=== PATIENT | female | born 1985 | race Caucasian/White ===

== ENCOUNTER 2020-08-04 14:05 | Emergency (ER) | payer MEDICAID ==
--- NOTE | 2020-08-04 15:13 | EDM.PDOCBH ---
ED HPI GENERAL MEDICAL PROBLEM - General Chief Complaint: Drug or Alcohol Abuse Stated Complaint: MEDICAL CLEARANCE FOR DETOX Time Seen by Provider: 08/04/20 14:50 Source of Information: Reports: Patient, Old Records History Limitations: Reports: No Limitations - History of Present Illness INITIAL COMMENTS - FREE TEXT/NARRATIVE: 34 yo female presents requesting medical clearance before admission to [facility]. Drinks a liter a day of hard liquor for a few mos. No hx of withdrawal or detox/rehab. Feels mildly shaky now. Lives in [place]. Stopped all her meds except for Flecainide. 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) - Related Data Allergies Allergy/AdvReac Type Severity Reaction Status Date / Time paroxetine [From Paxil] Allergy Nervousness Verified 08/04/20 14:53 trazodone Allergy Other Verified 08/04/20 14:53 Home Meds: Home Meds Flecainide [Tambocor] 100 mg PO Q12H 08/04/20 [History] Past Medical History Cardiovascular History: Reports: Other (See Below) Genitourinary History: Reports: None 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: Neurological History: Reports: Migraines Psychiatric History: Reports: Depression, PTSD Immunologic History: Reports: Other (See Below) Other Immunologic History: lymes - Infectious Disease History Infectious Disease History: Reports: Chicken Pox - Past Surgical History Head Surgeries/Procedures: Reports: None Cardiovascular Surgical History: Reports: Cardiac Ablation Female Surgical History: Reports: Section, Tubal Ligation Neurological Surgical History: Reports: None Dermatological Surgical History: Reports: None Social & Family History - Tobacco Use Tobacco Use Status *Q: Current Every Day Tobacco User Years of Tobacco use: 20 Packs/Tins Daily: 1 Used Tobacco, but Quit: No Second Hand Smoke Exposure: Yes - Caffeine Use Caffeine Use: Reports: Soda - Alcohol Use Days Per Week of Alcohol Use: 7 Number of Drinks Per Day: 1 Total Drinks Per Week: 7 - Recreational Drug Use Recreational Drug Use: No ED ROS GENERAL - Review of Systems Review Of Systems: See Below Constitutional: Reports: No Symptoms HEENT: Reports: No Symptoms Respiratory: Reports: No Symptoms Cardiovascular: Reports: No Symptoms Endocrine: Reports: No Symptoms GI/Abdominal: Reports: No Symptoms : Reports: No Symptoms Musculoskeletal: Reports: No Symptoms Skin: Reports: No Symptoms Neurological: Reports: Tremors ED EXAM, BEHAVIORAL HEALTH - Physical Exam Exam: See Below Exam Limited By: No Limitations General Appearance: Alert, WD/WN, No Apparent Distress Eye Exam: Bilateral Eye: Normal Inspection Ears: Normal External Exam, Normal Canal, Hearing Grossly Normal, Normal TMs Nose: Normal Inspection, No Blood Throat/Mouth: Normal Inspection, Normal Lips, Normal Oropharynx, Normal Voice, No Airway Compromise Head: Atraumatic, Normocephalic Neck: Normal Inspection Respiratory/Chest: No Respiratory Distress, Lungs Clear, Normal Breath Sounds, No Accessory Muscle Use Cardiovascular: Regular Rate, Rhythm, No Edema GI/Abdominal: Soft, Non-Tender, No Distention. No: Distended Back Exam: Normal Inspection. No: CVA Tenderness (R), CVA Tenderness (L) Extremities: Normal Inspection, Normal Range of Motion, Non-Tender, No Pedal Edema Neurological: Alert, Normal Mood/Affect, CN II-XII Intact, Normal Cognition, No Motor/Sensory Deficits, Oriented x 3 Psychiatric: Alert, Normal Affect, Normal Cognition, Normal Mood, Oriented Skin Exam: Warm, Dry, Intact, Normal color, No rash COURSE, BEHAVIORAL HEALTH COMP - Course Vital Signs: Last Vital Signs Temp 36.5 C 08/04/20 14:58 Pulse 67 08/04/20 14:58 Resp 17 08/04/20 14:58 BP 142/82 H 08/04/20 14:58 Pulse Ox 98 08/04/20 14:58 Orders, Labs, Meds: Active Orders 24 hr Category Date Time Status Potassium Chloride [Klor-Con M20] Med 08/04/20 15:32 Once 20 meq PO ONETIME ONE Laboratory Tests 08/04/20 08/04/20 08/04/20 Range/Units 14:49 14:49 14:49 WBC 9.0 (4.5-11.0) K/uL RBC 4.09 (3.30-5.50) M/uL Hgb 13.3 (12.0-15.0) g/dL Hct 40.6 (36.0-48.0) % MCV 99 H (80-98) fL MCH 33 H (27-31) pg MCHC 33 (32-36) % Plt Count 235 (150-400) K/uL Sodium 147 (140-148) mmol/L Potassium 3.4 L (3.6-5.2) mmol/L Chloride 106 (100-108) mmol/L Carbon Dioxide 25 (21-32) mmol/L Anion Gap 19.4 H (5.0-14.0) mmol/L BUN 13 (7-18) mg/dL Creatinine 0.8 (0.6-1.0) mg/dL Est Cr Clr Drug Dosing 85.69 mL/min Estimated GFR (MDRD) > 60 (>60) Glucose 89 (74-106) mg/dL Calcium 8.4 L (8.5-10.1) mg/dL Urine Color (YELLOW) Urine Appearance (CLEAR) Urine pH (5.0-8.0) Ur Specific [place] (1.008-1.030) Urine Protein (NEGATIVE) mg/dL Urine Glucose (UA) (NEGATIVE) mg/dL Urine Ketones (NEGATIVE) mg/dL Urine Occult Blood (NEGATIVE) Urine Nitrite (NEGATIVE) Urine Bilirubin (NEGATIVE) Urine Urobilinogen (0.2-1.0) EU/dL Ur Leukocyte Esterase (NEGATIVE) Urine RBC (0-5) Urine WBC (0-5) Ur Epithelial Cells Amorphous Sediment Urine Bacteria Urine Mucus Urine Opiates Screen (NEGATIVE) Ur Oxycodone Screen (NEGATIVE) Urine Methadone Screen (NEGATIVE) Ur Propoxyphene Screen (NEGATIVE) Ur Barbiturates Screen (NEGATIVE) Ur Tricyclics Screen (NEGATIVE) Ur Phencyclidine Scrn (NEGATIVE) Ur Amphetamine Screen (NEGATIVE) U Methamphetamines Scrn (NEGATIVE) Urine MDMA Screen (NEGATIVE) U Benzodiazepines Scrn (NEGATIVE) U Cocaine Metab Screen (NEGATIVE) U Marijuana (THC) Screen (NEGATIVE) Ethyl Alcohol 12 mg/dL SARS CoV-2 RNA Rapid UNIQUE 08/04/20 08/04/20 08/04/20 Range/Units 14:54 15:06 15:14 WBC (4.5-11.0) K/uL RBC (3.30-5.50) M/uL Hgb (12.0-15.0) g/dL Hct (36.0-48.0) % MCV (80-98) fL MCH (27-31) pg MCHC (32-36) % Plt Count (150-400) K/uL Sodium (140-148) mmol/L Potassium (3.6-5.2) mmol/L Chloride (100-108) mmol/L Carbon Dioxide (21-32) mmol/L Anion Gap (5.0-14.0) mmol/L BUN (7-18) mg/dL Creatinine (0.6-1.0) mg/dL Est Cr Clr Drug Dosing mL/min Estimated GFR (MDRD) (>60) Glucose (74-106) mg/dL Calcium (8.5-10.1) mg/dL Urine Color Yellow (YELLOW) Urine Appearance Slightly cloudy A (CLEAR) Urine pH 7.0 (5.0-8.0) Ur Specific [place] >= 1.030 (1.008-1.030) Urine Protein Negative (NEGATIVE) mg/dL Urine Glucose (UA) Negative (NEGATIVE) mg/dL Urine Ketones Negative (NEGATIVE) mg/dL Urine Occult Blood Negative (NEGATIVE) Urine Nitrite Negative (NEGATIVE) Urine Bilirubin Negative (NEGATIVE) Urine Urobilinogen 0.2 (0.2-1.0) EU/dL Ur Leukocyte Esterase Negative (NEGATIVE) Urine RBC 0-5 (0-5) Urine WBC 0-5 (0-5) Ur Epithelial Cells Moderate Amorphous Sediment Not seen Urine Bacteria Rare Urine Mucus Moderate Urine Opiates Screen Negative (NEGATIVE) Ur Oxycodone Screen Negative (NEGATIVE) Urine Methadone Screen Negative (NEGATIVE) Ur Propoxyphene Screen Negative (NEGATIVE) Ur Barbiturates Screen Negative (NEGATIVE) Ur Tricyclics Screen Negative (NEGATIVE) Ur Phencyclidine Scrn Negative (NEGATIVE) Ur Amphetamine Screen Negative (NEGATIVE) U Methamphetamines Scrn Negative (NEGATIVE) Urine MDMA Screen Negative (NEGATIVE) U Benzodiazepines Scrn Negative (NEGATIVE) U Cocaine Metab Screen Negative (NEGATIVE) U Marijuana (THC) Screen Negative (NEGATIVE) Ethyl Alcohol mg/dL SARS CoV-2 RNA Rapid UNIQUE Negative Medical Clearance: 08/04/20 15:32 Medically stable to discharge to [facility]. Departure - Departure Time of Disposition: 15:40 Disposition: DC/Tfer to Other Condition: Fair Clinical Impression: Alcohol abuse, Hypokalemia - Discharge Information *PRESCRIPTION DRUG MONITORING PROGRAM REVIEWED*: Not Applicable *COPY OF PRESCRIPTION DRUG MONITORING REPORT IN PATIENT ELIAS: Not Applicable Instructions: Alcohol Use Disorder Referrals: PCP,None [Primary Care Provider] - Forms: ED Department Discharge Sepsis Event Note (ED) - Evaluation Sepsis Screening Result: No Definite Risk - Focused Exam Vital Signs: Vital Signs Temp Pulse Resp BP Pulse Ox 08/04/20 14:58 36.5 C 67 17 142/82 H 98 08/04/20 14:39 36.5 C 67 17 142/82 H 98 - My Orders Last 24 Hours: My Active Orders 08/04/20 15:32 Potassium Chloride [Klor-Con M20] 20 meq PO ONETIME ONE - Assessment/Plan Last 24 Hours: My Active Orders 08/04/20 15:32 Potassium Chloride [Klor-Con M20] 20 meq PO ONETIME ONE
[2020-08-04] MEDS ORDERED: Potassium Chloride 20 MEQ Tab.ER PO ONE (15:32)
== END 2020-08-04 16:41 | disposition other institution (70) ==
LOC: JP.ED 14:05
DX: F10.10 Alcohol abuse, uncomplicated (principal); E87.6 Hypokalemia; Z88.8 Allergy status to other drugs, medicaments and biological substances; Z88.5 Allergy status to narcotic agent; Z72.0 Tobacco use; Z20.822 Contact with and (suspected) exposure to COVID-19
CPT/HCPCS: 36415; 80048; 80305; 80307; 81001; 85027; 87635; 99284; A9270; U0002

== ENCOUNTER 2020-10-04 23:19 | Emergency (ER) | payer MEDICAID ==
--- NOTE | 2020-10-04 23:47 | EDM.PDOCBH ---
ED HPI GENERAL MEDICAL PROBLEM - General Chief Complaint: Drug or Alcohol Abuse Stated Complaint: DETOX Time Seen by Provider: 10/04/20 23:36 Source of Information: Reports: Patient History Limitations: Reports: No Limitations - History of Present Illness INITIAL COMMENTS - FREE TEXT/NARRATIVE: Sarah is a 34-year-old female presenting to the ED for medical clearance to go into [facility] for detox and recovery of chronic alcoholism. Patient drinks daily and is susceptible to alcohol withdrawal causing delirium tremens. It is unclear whether she has withdrawal seizures, however, she cannot go a day without drinking. She apparently was in [place] in August 2020 for detox. She comes in today wanting help to quit drinking. Patient normally drinks whiskey reportedly about a liter a day. She recently lost her mother and grandmother whom she had been caring for. 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 She was previously in treatment for drug addiction but has not been in previous treatment for alcohol. She has a close friend who was involved in AA and is been sober for 30 years who currently is in custody of her children and will be her sponsor for . Patient reports that she was at [facility] in [facility] for 6 hours today and was told that her ammonia level was too high. Not much else is known about that visit. She is motivated by this news about elevated ammonia to get sober. 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: Neurological History: Reports: Migraines Psychiatric History: Reports: Depression, PTSD Immunologic History: Reports: Other (See Below) Other Immunologic History: lymes - Infectious Disease History Infectious Disease History: Reports: Chicken Pox - Past Surgical History Head Surgeries/Procedures: Reports: None Cardiovascular Surgical History: Reports: Cardiac Ablation Female Surgical History: Reports: Section, Tubal Ligation Neurological Surgical History: Reports: None Dermatological Surgical History: Reports: None Social & Family History - Caffeine Use Caffeine Use: Reports: Soda ED ROS GENERAL - Review of Systems Review Of Systems: See Below Constitutional: Reports: No Symptoms HEENT: Reports: No Symptoms Respiratory: Reports: No Symptoms Cardiovascular: Reports: No Symptoms Endocrine: Reports: No Symptoms GI/Abdominal: Reports: No Symptoms : Reports: No Symptoms Musculoskeletal: Reports: No Symptoms Skin: Reports: No Symptoms Neurological: Reports: Confusion Psychiatric: Reports: Cravings (Heavy alcohol use consuming a liter of whiskey a day). Denies: Homicidal Ideation, Suicidal Ideation Hematologic/Lymphatic: Reports: No Symptoms Immunologic: Reports: No Symptoms ED EXAM, BEHAVIORAL HEALTH - Physical Exam Exam: See Below Exam Limited By: No Limitations General Appearance: Alert, No Apparent Distress, Anxious Eye Exam: Bilateral Eye: EOMI, PERRL Throat/Mouth: Normal Inspection, Normal Lips, Normal Oropharynx, Normal Voice, No Airway Compromise Head: Atraumatic, Normocephalic Neck: Normal Inspection, Supple, Non-Tender, Full Range of Motion Respiratory/Chest: No Respiratory Distress, Lungs Clear, Normal Breath Sounds Cardiovascular: Normal Peripheral Pulses, Regular Rate, Rhythm, No Edema, No Murmur GI/Abdominal: Normal Bowel Sounds, Soft, Non-Tender Back Exam: Normal Inspection Extremities: Normal Inspection, Normal Range of Motion Neurological: Alert, Normal Mood/Affect, CN II-XII Intact, Normal Cognition, Normal Gait, No Motor/Sensory Deficits, Oriented x 3 Psychiatric: Alert, Normal Affect, Normal Cognition, Normal Mood, Oriented Skin Exam: Warm, Dry, Intact COURSE, BEHAVIORAL HEALTH COMP - Course Vital Signs: Last Vital Signs Temp 36.3 C 10/04/20 23:57 Pulse 98 10/04/20 23:57 Resp 16 10/04/20 23:57 BP 116/75 10/04/20 23:57 Pulse Ox 96 10/04/20 23:57 Orders, Labs, Meds: Active Orders 24 hr Category Date Time Status Isolation [COMM] Stat Oth 10/04/20 23:37 Ordered Laboratory Tests 10/04/20 10/04/20 10/04/20 Range/Units 23:49 23:49 23:49 WBC 8.6 (4.5-11.0) K/uL RBC 4.24 (3.30-5.50) M/uL Hgb 13.9 (12.0-15.0) g/dL Hct 41.9 (36.0-48.0) % MCV 99 H (80-98) fL MCH 33 H (27-31) pg MCHC 33 (32-36) % Plt Count 284 (150-400) K/uL Neut % (Auto) 57.3 (36-66) % Lymph % (Auto) 32.9 (24-44) % [place] % (Auto) 8.3 H (2-6) % Eos % (Auto) 1.0 L (2-4) % Baso % (Auto) 0.5 (0-1) % Sodium 147 (140-148) mmol/L Potassium 3.8 (3.6-5.2) mmol/L Chloride 109 H (100-108) mmol/L Carbon Dioxide 24 (21-32) mmol/L Anion Gap 17.8 H (5.0-14.0) mmol/L BUN 15 (7-18) mg/dL Creatinine 0.6 (0.6-1.0) mg/dL Est Cr Clr Drug Dosing 114.25 mL/min Estimated GFR (MDRD) > 60 (>60) Glucose 93 (74-106) mg/dL Calcium 7.9 L (8.5-10.1) mg/dL Total Bilirubin 0.4 (0.2-1.0) mg/dL AST 21 (15-37) U/L ALT 24 (12-78) U/L Alkaline Phosphatase 93 (46-116) U/L Ammonia (11-32) umol/L Total Protein 6.8 (6.4-8.2) g/dL Albumin 3.8 (3.4-5.0) g/dL Globulin 3.0 (2.3-3.5) g/dL Albumin/Globulin Ratio 1.3 (1.2-2.2) Lipase 108 (73-393) U/L Urine Color (YELLOW) Urine Appearance (CLEAR) Urine pH (5.0-8.0) Ur Specific [place] (1.008-1.030) Urine Protein (NEGATIVE) mg/dL Urine Glucose (UA) (NEGATIVE) mg/dL Urine Ketones (NEGATIVE) mg/dL Urine Occult Blood (NEGATIVE) Urine Nitrite (NEGATIVE) Urine Bilirubin (NEGATIVE) Urine Urobilinogen (0.2-1.0) EU/dL Ur Leukocyte Esterase (NEGATIVE) Urine RBC (0-5) Urine WBC (0-5) Ur Epithelial Cells Amorphous Sediment Urine Bacteria Urine Mucus Urine Opiates Screen (NEGATIVE) Ur Oxycodone Screen (NEGATIVE) Urine Methadone Screen (NEGATIVE) Ur Propoxyphene Screen (NEGATIVE) Ur Barbiturates Screen (NEGATIVE) Ur Tricyclics Screen (NEGATIVE) Ur Phencyclidine Scrn (NEGATIVE) Ur Amphetamine Screen (NEGATIVE) U Methamphetamines Scrn (NEGATIVE) Urine MDMA Screen (NEGATIVE) U Benzodiazepines Scrn (NEGATIVE) U Cocaine Metab Screen (NEGATIVE) U Marijuana (THC) Screen (NEGATIVE) Ethyl Alcohol 292 mg/dL SARS CoV-2 RNA Rapid UNIQUE 10/04/20 10/05/20 10/05/20 Range/Units 23:49 00:00 00:00 WBC (4.5-11.0) K/uL RBC (3.30-5.50) M/uL Hgb (12.0-15.0) g/dL Hct (36.0-48.0) % MCV (80-98) fL MCH (27-31) pg MCHC (32-36) % Plt Count (150-400) K/uL Neut % (Auto) (36-66) % Lymph % (Auto) (24-44) % [place] % (Auto) (2-6) % Eos % (Auto) (2-4) % Baso % (Auto) (0-1) % Sodium (140-148) mmol/L Potassium (3.6-5.2) mmol/L Chloride (100-108) mmol/L Carbon Dioxide (21-32) mmol/L Anion Gap (5.0-14.0) mmol/L BUN (7-18) mg/dL Creatinine (0.6-1.0) mg/dL Est Cr Clr Drug Dosing mL/min Estimated GFR (MDRD) (>60) Glucose (74-106) mg/dL Calcium (8.5-10.1) mg/dL Total Bilirubin (0.2-1.0) mg/dL AST (15-37) U/L ALT (12-78) U/L Alkaline Phosphatase (46-116) U/L Ammonia 19 (11-32) umol/L Total Protein (6.4-8.2) g/dL Albumin (3.4-5.0) g/dL Globulin (2.3-3.5) g/dL Albumin/Globulin Ratio (1.2-2.2) Lipase (73-393) U/L Urine Color Yellow (YELLOW) Urine Appearance Clear (CLEAR) Urine pH 5.5 (5.0-8.0) Ur Specific [place] 1.010 (1.008-1.030) Urine Protein Negative (NEGATIVE) mg/dL Urine Glucose (UA) Negative (NEGATIVE) mg/dL Urine Ketones Negative (NEGATIVE) mg/dL Urine Occult Blood Trace-lysed H (NEGATIVE) Urine Nitrite Negative (NEGATIVE) Urine Bilirubin Negative (NEGATIVE) Urine Urobilinogen 0.2 (0.2-1.0) EU/dL Ur Leukocyte Esterase Negative (NEGATIVE) Urine RBC Not seen (0-5) Urine WBC Not seen (0-5) Ur Epithelial Cells Occasional Amorphous Sediment Rare Urine Bacteria Rare Urine Mucus Not seen Urine Opiates Screen Negative (NEGATIVE) Ur Oxycodone Screen Negative (NEGATIVE) Urine Methadone Screen Negative (NEGATIVE) Ur Propoxyphene Screen Negative (NEGATIVE) Ur Barbiturates Screen Negative (NEGATIVE) Ur Tricyclics Screen Negative (NEGATIVE) Ur Phencyclidine Scrn Negative (NEGATIVE) Ur Amphetamine Screen Negative (NEGATIVE) U Methamphetamines Scrn Negative (NEGATIVE) Urine MDMA Screen Negative (NEGATIVE) U Benzodiazepines Scrn Negative (NEGATIVE) U Cocaine Metab Screen Negative (NEGATIVE) U Marijuana (THC) Screen Negative (NEGATIVE) Ethyl Alcohol mg/dL SARS CoV-2 RNA Rapid UNIQUE 10/05/20 Range/Units 00:26 WBC (4.5-11.0) K/uL RBC (3.30-5.50) M/uL Hgb (12.0-15.0) g/dL Hct (36.0-48.0) % MCV (80-98) fL MCH (27-31) pg MCHC (32-36) % Plt Count (150-400) K/uL Neut % (Auto) (36-66) % Lymph % (Auto) (24-44) % [place] % (Auto) (2-6) % Eos % (Auto) (2-4) % Baso % (Auto) (0-1) % Sodium (140-148) mmol/L Potassium (3.6-5.2) mmol/L Chloride (100-108) mmol/L Carbon Dioxide (21-32) mmol/L Anion Gap (5.0-14.0) mmol/L BUN (7-18) mg/dL Creatinine (0.6-1.0) mg/dL Est Cr Clr Drug Dosing mL/min Estimated GFR (MDRD) (>60) Glucose (74-106) mg/dL Calcium (8.5-10.1) mg/dL Total Bilirubin (0.2-1.0) mg/dL AST (15-37) U/L ALT (12-78) U/L Alkaline Phosphatase (46-116) U/L Ammonia (11-32) umol/L Total Protein (6.4-8.2) g/dL Albumin (3.4-5.0) g/dL Globulin (2.3-3.5) g/dL Albumin/Globulin Ratio (1.2-2.2) Lipase (73-393) U/L Urine Color (YELLOW) Urine Appearance (CLEAR) Urine pH (5.0-8.0) Ur Specific [place] (1.008-1.030) Urine Protein (NEGATIVE) mg/dL Urine Glucose (UA) (NEGATIVE) mg/dL Urine Ketones (NEGATIVE) mg/dL Urine Occult Blood (NEGATIVE) Urine Nitrite (NEGATIVE) Urine Bilirubin (NEGATIVE) Urine Urobilinogen (0.2-1.0) EU/dL Ur Leukocyte Esterase (NEGATIVE) Urine RBC (0-5) Urine WBC (0-5) Ur Epithelial Cells Amorphous Sediment Urine Bacteria Urine Mucus Urine Opiates Screen (NEGATIVE) Ur Oxycodone Screen (NEGATIVE) Urine Methadone Screen (NEGATIVE) Ur Propoxyphene Screen (NEGATIVE) Ur Barbiturates Screen (NEGATIVE) Ur Tricyclics Screen (NEGATIVE) Ur Phencyclidine Scrn (NEGATIVE) Ur Amphetamine Screen (NEGATIVE) U Methamphetamines Scrn (NEGATIVE) Urine MDMA Screen (NEGATIVE) U Benzodiazepines Scrn (NEGATIVE) U Cocaine Metab Screen (NEGATIVE) U Marijuana (THC) Screen (NEGATIVE) Ethyl Alcohol mg/dL SARS CoV-2 RNA Rapid UNIQUE Negative Re-Assessment/Re-Exam: I reviewed the patient's labs with a CBC showing hemoglobin of 13.9 with hematocrit of 41.9. Leukocyte count of 8.6 with a platelet count of 284,000. The comprehensive metabolic panel is normal with a sodium of 147, potassium 3.8, chloride of 109, bicarbonate of 24, BUN of 15 with a creatinine of 0.6 and a glucose of 93. The transaminases are normal. The patient's ammonia level is at the upper end of normal at 19. The patient's ethanol level is elevated at 292. Urinalysis is unremarkable. The patient's U tox is negative for any drugs. Covid test is negative. The patient is medically cleared for admission to inpatient treatment at [facility]. Medical Clearance: 10/05/20 00:29 patient is medically cleared for admission to [facility] for alcohol treatment. Departure - Departure Time of Disposition: 00:29 Disposition: DC/Tfer to Other 70 Clinical Impression: Alcohol abuse Alcohol intoxication Qualifiers: Complication of substance-induced condition: uncomplicated Qualified Code(s): F10.920 - Alcohol use, unspecified with intoxication, uncomplicated - Discharge Information Instructions: Alcohol Use Disorder, Alcohol Intoxication, [id number] Referrals: PCP,None [Primary Care Provider] - Forms: ED Department Discharge Care Plan Goals: You are medically cleared for inpatient admission at [facility] for alcohol treatment. Sepsis Event Note (ED) - Focused Exam Vital Signs: Vital Signs Temp Pulse Resp BP Pulse Ox 10/04/20 23:57 36.3 C 98 16 116/75 96 10/04/20 23:40 36.3 C 98 16 116/75 96 - Problem List & Annotations (1) Alcohol abuse SNOMED Code(s): 52415012 Code(s): F10.10 - ALCOHOL ABUSE, UNCOMPLICATED Status: Acute Priority: Medium Current Visit: Yes (2) Alcohol intoxication SNOMED Code(s): 73119644 Code(s): F10.929 - ALCOHOL USE, UNSPECIFIED WITH INTOXICATION, UNSPECIFIED Status: Acute Priority: Medium Current Visit: Yes Qualifiers: Complication of substance-induced condition: uncomplicated Qualified Code(s): F10.920 - Alcohol use, unspecified with intoxication, uncomplicated - Problem List Review Problem List Initiated/Reviewed/Updated: Yes - My Orders Last 24 Hours: My Active Orders 10/04/20 23:37 Isolation [COMM] Stat - Assessment/Plan Last 24 Hours: My Active Orders 10/04/20 23:37 Isolation [COMM] Stat
== END 2020-10-05 01:30 | disposition other institution (70) ==
LOC: JP.ED 23:19
DX: F10.220 Alcohol dependence with intoxication, uncomplicated (principal); Y90.8 Blood alcohol level of 240 mg/100 ml or more; Z20.822 Contact with and (suspected) exposure to COVID-19; Z88.8 Allergy status to other drugs, medicaments and biological substances; Z88.5 Allergy status to narcotic agent
CPT/HCPCS: 36415; 80053; 80305-QW; 80307; 81001; 82140; 83690; 85025; 99283; 99284; U0002

== ENCOUNTER 2021-03-19 15:13 | Emergency (ER) | payer MEDICAID ==
--- NOTE | 2021-03-19 16:49 | EDM.PDOCBH ---
ED HPI GENERAL MEDICAL PROBLEM - General Chief Complaint: Drug or Alcohol Abuse Stated Complaint: EVAL Time Seen by Provider: 03/19/21 16:35 Source of Information: Reports: Patient, RN. Denies: Old Records History Limitations: Reports: Other (no old records) - History of Present Illness INITIAL COMMENTS - FREE TEXT/NARRATIVE: 35 yo female is here from [place] requesting medical clearance for [facility]. She has been there before. Drinks up to a pint of whiskey/day. Smokes 1 ppd. No drugs. Drank earlier today. Here with and daughter. Was dx with Covid 3 weeks ago. No recent bloody emesis or stool. Her worst withdrawal sx's in past were vomiting and diarrhea and shakes. No seizures or DT's. Onset: Unknown/Unsure Duration: Chronic, Waxing/Waning Location: Reports: Generalized Quality: Reports: Other (pain not reported) Severity: Moderate Improves with: Reports: None Worsens with: Reports: None Context: Reports: Other (See HPI) Associated Symptoms: Reports: No Other Symptoms Treatments STEM ROLLER: Reports: Other (see below) (none) - Related Data Allergies Allergy/AdvReac Type Severity Reaction Status Date / Time nickel Allergy Rash Verified 03/19/21 16:05 paroxetine [From Paxil] Allergy Nervousness Verified 03/19/21 16:05 trazodone Allergy Other Verified 03/19/21 16:05 Home Meds: Home Meds Flecainide Acetate 100 mg PO BID 10/05/20 [History] Potassium Chloride [Klor-Con M20] 1 tab PO DAILY 03/19/21 [History] predniSONE 10 mg PO DAILY 03/19/21 [History] Past Medical History Cardiovascular History: Reports: Arrhythmia, Other (See Below) Respiratory History: Reports: Asthma, Other (See Below) Other Respiratory History: covid 3 weeks ago Genitourinary History: Reports: None [employer] History: Reports: Neurological History: Reports: Migraines Psychiatric History: Reports: Addiction, Depression, PTSD Immunologic History: Reports: Other (See Below) Other Immunologic History: lymes - Infectious Disease History Infectious Disease History: Reports: Chicken Pox - Past Surgical History Head Surgeries/Procedures: Reports: None Cardiovascular Surgical History: Reports: Cardiac Ablation Female Surgical History: Reports: Section, Tubal Ligation Neurological Surgical History: Reports: None Dermatological Surgical History: Reports: None Social & Family History - Tobacco Use Tobacco Use Status *Q: Current Every Day Tobacco User Years of Tobacco use: 28 Packs/Tins Daily: 1 Used Tobacco, but Quit: No - Caffeine Use Caffeine Use: Reports: None - Alcohol Use Date of Last Drink: 03/19/21 Time of Last Drink: 12:15 - Recreational Drug Use Recreational Drug Use: No ED ROS GENERAL - Review of Systems Review Of Systems: See Below Constitutional: Reports: Malaise HEENT: Reports: No Symptoms Respiratory: Reports: No Symptoms Cardiovascular: Reports: No Symptoms GI/Abdominal: Reports: No Symptoms : Reports: No Symptoms Musculoskeletal: Reports: No Symptoms Skin: Reports: No Symptoms Neurological: Reports: No Symptoms Psychiatric: Reports: No Symptoms ED EXAM, BEHAVIORAL HEALTH - Physical Exam Exam: See Below Exam Limited By: No Limitations General Appearance: Alert, WD/WN, No Apparent Distress, Other (intoxicated) Eye Exam: Bilateral Eye: Normal Inspection Ears: Normal External Exam, Normal Canal, Hearing Grossly Normal Nose: Normal Inspection, No Blood Throat/Mouth: Normal Inspection, Normal Lips, Normal Oropharynx, Normal Voice, No Airway Compromise Head: Atraumatic, Normocephalic Neck: Normal Inspection Respiratory/Chest: No Respiratory Distress, Lungs Clear, Normal Breath Sounds, No Accessory Muscle Use Cardiovascular: Regular Rate, Rhythm, No Edema, Tachycardia GI/Abdominal: Normal Bowel Sounds, Soft, Non-Tender, No Distention Back Exam: Normal Inspection. No: CVA Tenderness (R), CVA Tenderness (L) Extremities: Normal Inspection, Normal Range of Motion, Non-Tender, No Pedal Edema Neurological: Alert, Normal Mood/Affect, CN II-XII Intact, Normal Cognition, No Motor/Sensory Deficits, Oriented x 3 Psychiatric: Alert, Normal Affect, Normal Cognition, Normal Mood, Oriented Skin Exam: Warm, Dry, Intact, Normal color, No rash COURSE, BEHAVIORAL HEALTH COMP - Course Vital Signs: Last Vital Signs Temp 36.6 C 03/19/21 16:17 Pulse 106 H 03/19/21 16:17 Resp 20 03/19/21 16:17 BP 132/90 03/19/21 16:17 Pulse Ox 99 03/19/21 16:17 Orders, Labs, Meds: Laboratory Tests 03/19/21 03/19/21 03/19/21 Range/Units 16:15 17:08 17:08 Urine Opiates Screen Negative (NEGATIVE) Ur Oxycodone Screen Negative (NEGATIVE) Urine Methadone Screen Negative (NEGATIVE) Ur Propoxyphene Screen Negative (NEGATIVE) Ur Barbiturates Screen Negative (NEGATIVE) Ur Tricyclics Screen Negative (NEGATIVE) Ur Phencyclidine Scrn Negative (NEGATIVE) Ur Amphetamine Screen Negative (NEGATIVE) U Methamphetamines Scrn Negative (NEGATIVE) Urine MDMA Screen Negative (NEGATIVE) U Benzodiazepines Scrn Negative (NEGATIVE) U Cocaine Metab Screen Negative (NEGATIVE) U Marijuana (THC) Screen Negative (NEGATIVE) Ethyl Alcohol 295 mg/dL SARS CoV-2 RNA Rapid UNIQUE Positive H Medications Discontinued Medications Generic Name Dose Route Start Last Admin Trade Name Freq PRN Reason Stop Dose Admin Thiamine HCl 100 mg 03/19/21 16:55 Thiamine 100 Mg Tab PO 03/19/21 16:56 ONETIME ONE Re-Assessment/Re-Exam Date: 03/19/21 (discussed the fact that [facility] won't take her due to her Covid issue. Sarah wants to go home and try back later with them. Will call them tomorrow to discuss when she should return for clearance. ) Departure - Departure Time of Disposition: 17:45 Disposition: Home, Self-Care 01 Condition: Fair Clinical Impression: Alcohol abuse, COVID-19, Tobacco abuse Alcohol intoxication Qualifiers: Complication of substance-induced condition: uncomplicated Qualified Code(s): F10.920 - Alcohol use, unspecified with intoxication, uncomplicated - Discharge Information *PRESCRIPTION DRUG MONITORING PROGRAM REVIEWED*: Not Applicable *COPY OF PRESCRIPTION DRUG MONITORING REPORT IN PATIENT ELIAS: Not Applicable Referrals: PCP,None [Primary Care Provider] - Forms: ED Department Discharge Additional Instructions: Check back with [facility] regarding how long you need to wait before returning for medical clearance. Sepsis Event Note (ED) - Evaluation Sepsis Screening Result: No Definite Risk - Focused Exam Vital Signs: Vital Signs Temp Pulse Resp BP Pulse Ox 03/19/21 16:17 36.6 C 106 H 20 132/90 99 03/19/21 16:16 36.6 C 106 H 16 132/90 99
[2021-03-19] MEDS ORDERED: Thiamine 100 MG Tab PO ONE (16:55)
== END 2021-03-19 17:59 | disposition home or self-care (01) ==
LOC: JP.ED 15:13
DX: U07.1 COVID-19 (principal); F10.120 Alcohol abuse with intoxication, uncomplicated; F17.210 Nicotine dependence, cigarettes, uncomplicated; J45.909 Unspecified asthma, uncomplicated; Y90.8 Blood alcohol level of 240 mg/100 ml or more; Z88.8 Allergy status to other drugs, medicaments and biological substances; Z91.048 Other nonmedicinal substance allergy status; Z79.899 Other long term (current) drug therapy
CPT/HCPCS: 36415; 80305-QW; 80307; 99283; U0002

== ENCOUNTER 2021-07-02 13:42 | Emergency (ER) | payer BC, MEDICAID ==
[2021-07-02 14:45] LABS: CORONAVIRUS COVID-19 NAA NEGATIVE (NEGATIVE)
== END 2021-07-02 15:16 | disposition home or self-care (01) ==
LOC: JP.ED 13:42
DX: F10.10 Alcohol abuse, uncomplicated (principal); J45.909 Unspecified asthma, uncomplicated; Z88.5 Allergy status to narcotic agent; Z91.048 Other nonmedicinal substance allergy status; Z72.0 Tobacco use; Y90.6 Blood alcohol level of 120-199 mg/100 ml; Z20.822 Contact with and (suspected) exposure to COVID-19
CPT/HCPCS: 0241U; 36415; 80053; 80305-QW; 80307; 81025; 85025; 99282; 99284

== ENCOUNTER 2023-11-19 17:44 | Emergency (ER) | payer BC, MEDICAID ==
[2023-11-19 18:30] LABS: BASOPHILS ABSOLUTE AUTO 0.08 K/uL (0.00-0.10); BASOPHILS PERCENT AUTO 0.8 % (0.1-1.3); EOSINOPHILS ABSOLUTE AUTO 0.15 K/uL (0.00-0.40); EOSINOPHILS PERCENT AUTO 1.5 % (0.0-5.4); HEMATOCRIT 46.2 % (34.3-46.0); HEMOGLOBIN 16.6 g/dL (11.2-15.5); IMMATURE GRAN ABSOLUTE AUTO 0.01 K/uL (0.00-0.23); IMMATURE GRAN PERCENT AUTO 0.1 % (0.0-0.7); LYMPHOCYTES ABSOLUTE AUTO 4.59 K/uL (0.8-3.3); MEAN CORPUSCULAR HEMOGLOBIN 33.5 pg (31.6-35.5); MEAN CORPUSCULAR HGB CONC 35.9 g/dL (31.6-35.5); MEAN CORPUSCULAR VOLUME 93.3 fL (81.4-99.0); MONOCYTES ABSOLUTE AUTO 0.93 K/uL (0.20-0.90); MONOCYTES PERCENT AUTO 9.3 % (3.3-12.6); NEUTROPHILS ABSOLUTE AUTO 4.22 K/uL (1.0-7.6); NEUTROPHILS PERCENT AUTO 42.3 % (40.0-78.1); PLATELET COUNT,PLT 315 K/uL (130-375); RED BLOOD CELL COUNT 4.95 M/uL (3.77-5.24)
[2023-11-19 18:31] LABS: AMPHETAMINES SCREEN, URINE NEGATIVE (NEGATIVE); BARBITURATE SCREEN,URINE NEGATIVE (NEGATIVE); BENZODIAZEPINES SCREEN,URINE NEGATIVE (NEGATIVE); METHADONE SCREEN, URINE NEGATIVE (NEGATIVE); METHAMPHETAMINES SCREEN, URINE NEGATIVE (NEGATIVE); OXYCODONE SCREEN,URINE NEGATIVE (NEGATIVE); PROPOXYPHENE SCREEN,URINE NEGATIVE (NEGATIVE); THC SCREEN,URINE 50 NG/ML NEGATIVE (NEGATIVE)
[2023-11-19 18:50] LABS: A/G RATIO 1.2 (1.2-2.2); ALANINE AMINOTRANSFERASE,ALT 79 U/L (12-78); ALBUMIN 3.9 g/dL (3.4-5.0); ALKALINE PHOSPHATASE 160 U/L (46-116); ASPARTATE AMNIOTRANSFERASE,AST 104 U/L (15-37); BILIRUBIN TOTAL 0.2 mg/dL (0.2-1.0); BLOOD UREA NITROGEN,BUN 8 mg/dL (7-18); CALCIUM 8.3 mg/dL (8.5-10.1); CARBON DIOXIDE,CO2 28 mmol/L (21-32); CHLORIDE,CL 103 mmol/L (100-108); CREATININE 0.9 mg/dL (0.6-1.0); EST CRCL DRUG DOSING (CG) 75.25 mL/min; ESTIMATED GFR 83 mL/min (>60); GLUCOSE RANDOM 125 mg/dL (74-106); POTASSIUM,K 3.4 mmol/L (3.6-5.2); PROTEIN TOTAL,TP 7.2 g/dL (6.4-8.2); SODIUM,NA 145 mmol/L (140-148)
[2023-11-19 18:51] LABS: ANION GAP 17.4 mmol/L (5.0-14.0)
== END 2023-11-19 21:06 ==
LOC: JP.ED 17:44
DX: F10.120 Alcohol abuse with intoxication, uncomplicated (principal); F17.210 Nicotine dependence, cigarettes, uncomplicated; Z79.899 Other long term (current) drug therapy; Z88.8 Allergy status to other drugs, medicaments and biological substances; Z91.048 Other nonmedicinal substance allergy status
CPT/HCPCS: 36415; 80053; 80305-QW; 80307; 85025; 99284

== ENCOUNTER 2024-06-17 17:44 | Emergency (ER) | payer MEDICAID ==
[2024-06-17 18:31] LABS: BASOPHILS ABSOLUTE AUTO 0.05 K/uL (0.00-0.10); BASOPHILS PERCENT AUTO 0.6 % (0.1-1.3); EOSINOPHILS ABSOLUTE AUTO 0.13 K/uL (0.00-0.40); EOSINOPHILS PERCENT AUTO 1.7 % (0.0-5.4); HEMOGLOBIN 13.4 g/dL (11.2-15.5); IMMATURE GRAN PERCENT AUTO 0.1 % (0.0-0.7); LYMPHOCYTES ABSOLUTE AUTO 3.69 K/uL (0.8-3.3); LYMPHOCYTES PERCENT AUTO 47.4 % (11.4-47.7); MEAN CORPUSCULAR HEMOGLOBIN 34.3 pg (31.6-35.5); MEAN CORPUSCULAR HGB CONC 35.3 g/dL (31.6-35.5); MEAN CORPUSCULAR VOLUME 97.2 fL (81.4-99.0); MONOCYTES ABSOLUTE AUTO 0.48 K/uL (0.20-0.90); MONOCYTES PERCENT AUTO 6.2 % (3.3-12.6); NEUTROPHILS ABSOLUTE AUTO 3.42 K/uL (1.0-7.6); PLATELET COUNT,PLT 299 K/uL (130-375); RED BLOOD CELL COUNT 3.91 M/uL (3.77-5.24); WHITE BLOOD CELL COUNT,WBC 7.8 K/uL (3.2-11.0)
[2024-06-17 18:33] LABS: IMMATURE GRAN ABSOLUTE AUTO 0.01 K/uL (0.00-0.23)
[2024-06-17 18:38] LABS: APPEARANCE,URINE SLIGHTLY CLOUDY (CLEAR); BILIRUBIN,URINE NEGATIVE (NEGATIVE); COLOR,URINE YELLOW (YELLOW); GLUCOSE,URINE NEGATIVE (NEGATIVE); KETONES,URINE NEGATIVE (NEGATIVE); LEUKOCYTE ESTERASE,URINE NEGATIVE (NEGATIVE); NITRITE,URINE NEGATIVE (NEGATIVE); OCCULT BLOOD,URINE TRACE-INTACT (NEGATIVE); PH,URINE 5.5 (5.0-8.0); PROTEIN,URINE NEGATIVE (NEGATIVE); UROBILINOGEN,URINE 0.2 EU/dL (0.2-1.0)
[2024-06-17 18:46] LABS: AMPHETAMINES SCREEN, URINE NEGATIVE (NEGATIVE); BARBITURATE SCREEN,URINE NEGATIVE (NEGATIVE); BENZODIAZEPINES SCREEN,URINE NEGATIVE (NEGATIVE); METHADONE SCREEN, URINE NEGATIVE (NEGATIVE); METHAMPHETAMINES SCREEN, URINE NEGATIVE (NEGATIVE); OXYCODONE SCREEN,URINE NEGATIVE (NEGATIVE)
[2024-06-17 18:47] LABS: AMORPHOUS SEDIMENT,URINE NOT SEEN; BACTERIA,URINE FEW; EPITHELIAL CELLS,URINE FEW; MUCUS,URINE NOT SEEN; PROPOXYPHENE SCREEN,URINE NEGATIVE (NEGATIVE); RBC,URINE 0-5 (0-5); THC SCREEN,URINE 50 NG/ML NEGATIVE (NEGATIVE); WBC,URINE 0-5 (0-5)
[2024-06-17 18:53] LABS: A/G RATIO 1.3 (1.2-2.2); ALANINE AMINOTRANSFERASE,ALT 23 U/L (12-78); ALBUMIN 3.7 g/dL (3.4-5.0); ALKALINE PHOSPHATASE 70 U/L (46-116); ASPARTATE AMNIOTRANSFERASE,AST 27 U/L (15-37); BILIRUBIN TOTAL 0.3 mg/dL (0.2-1.0); BLOOD UREA NITROGEN,BUN 11 mg/dL (7-18); CALCIUM 8.3 mg/dL (8.5-10.1); CARBON DIOXIDE,CO2 25 mmol/L (21-32); CHLORIDE,CL 105 mmol/L (100-108); CREATININE 0.8 mg/dL (0.6-1.0); EST CRCL DRUG DOSING (CG) 87.89 mL/min; ESTIMATED GFR 96 mL/min (>60); GLUCOSE RANDOM 84 mg/dL (74-106); POTASSIUM,K 3.4 mmol/L (3.6-5.2); PROTEIN TOTAL,TP 6.6 g/dL (6.4-8.2); SODIUM,NA 141 mmol/L (140-148)
[2024-06-17 19:01] LABS: ANION GAP 14.4 mmol/L (5.0-14.0)
[2024-06-17] MEDS: Nicotine Polacrilex 2 MG Gum ONE (19:05)
[2024-06-17] MEDS: Nicotine Polacrilex 2 MG Gum CHEW ONE (19:05)
[2024-06-17] MEDS: Ondansetron 4 MG Tab.DIS PO ONE (19:05)
[2024-06-17] MEDS: Flecainide 50 MG Tab PO ONE (20:52)
[2024-06-17] MEDS: Escitalopram 10 MG Tab PO ONE (20:53)
== END 2024-06-17 20:57 ==
LOC: JP.ED 17:44
DX: F10.10 Alcohol abuse, uncomplicated (principal); J45.909 Unspecified asthma, uncomplicated; Z88.8 Allergy status to other drugs, medicaments and biological substances; Z79.899 Other long term (current) drug therapy; Y90.8 Blood alcohol level of 240 mg/100 ml or more
CPT/HCPCS: 36415; 80053; 80305; 80307; 81001; 85025; 99284; A9270

== ENCOUNTER 2024-08-31 21:09 | Emergency (ER) | payer MEDICAID ==
[2024-08-31 21:30] LABS: AMPHETAMINES SCREEN, URINE NEGATIVE (NEGATIVE); BARBITURATE SCREEN,URINE NEGATIVE (NEGATIVE); BENZODIAZEPINES SCREEN,URINE NEGATIVE (NEGATIVE); METHADONE SCREEN, URINE NEGATIVE (NEGATIVE); METHAMPHETAMINES SCREEN, URINE NEGATIVE (NEGATIVE); OXYCODONE SCREEN,URINE NEGATIVE (NEGATIVE); PROPOXYPHENE SCREEN,URINE NEGATIVE (NEGATIVE); THC SCREEN,URINE 50 NG/ML NEGATIVE (NEGATIVE)
[2024-08-31 21:46] LABS: HEMATOCRIT 40.3 % (34.3-46.0); HEMOGLOBIN 14.2 g/dL (11.2-15.5); MEAN CORPUSCULAR HEMOGLOBIN 35.6 pg (31.6-35.5); MEAN CORPUSCULAR HGB CONC 35.2 g/dL (31.6-35.5); RED BLOOD CELL COUNT 3.99 M/uL (3.77-5.24); WHITE BLOOD CELL COUNT,WBC 6.5 K/uL (3.2-11.0)
[2024-08-31 21:54] LABS: BLOOD UREA NITROGEN,BUN 5 mg/dL (7-18); CALCIUM 8.1 mg/dL (8.5-10.1); CARBON DIOXIDE,CO2 30 mmol/L (21-32); CHLORIDE,CL 104 mmol/L (100-108); CREATININE 0.8 mg/dL (0.6-1.0); EST CRCL DRUG DOSING (CG) 87.79 mL/min; ESTIMATED GFR 96 mL/min (>60); GLUCOSE RANDOM 114 mg/dL (74-106); SODIUM,NA 144 mmol/L (140-148)
[2024-08-31 21:55] LABS: ALANINE AMINOTRANSFERASE,ALT 77 U/L (12-78); ALBUMIN 3.3 g/dL (3.4-5.0); ALKALINE PHOSPHATASE 159 U/L (46-116); ASPARTATE AMNIOTRANSFERASE,AST 82 U/L (15-37); BILIRUBIN TOTAL 0.3 mg/dL (0.2-1.0); PROTEIN TOTAL,TP 6.6 g/dL (6.4-8.2)
[2024-08-31 21:56] LABS: ANION GAP 12.4 mmol/L (5.0-14.0); POTASSIUM,K 2.4 mmol/L (3.6-5.2)
[2024-08-31] MEDS: Potassium Chloride 20 MEQ Tab.ER PO ONE (22:03)
== END 2024-08-31 22:39 | disposition other institution (70) ==
LOC: JP.ED 21:09
DX: F10.220 Alcohol dependence with intoxication, uncomplicated (principal); E87.6 Hypokalemia; F17.210 Nicotine dependence, cigarettes, uncomplicated; J45.909 Unspecified asthma, uncomplicated; Z79.899 Other long term (current) drug therapy; Z91.048 Other nonmedicinal substance allergy status; Z88.5 Allergy status to narcotic agent; Z88.8 Allergy status to other drugs, medicaments and biological substances; Y90.8 Blood alcohol level of 240 mg/100 ml or more
CPT/HCPCS: 36415; 80053; 80305; 80307; 85027; 99284; A9270

== ENCOUNTER 2024-12-03 15:05 | Emergency (ER) | payer MEDICAID ==
[2024-12-03 15:52] LABS: AMPHETAMINES SCREEN, URINE NEGATIVE (NEGATIVE); METHADONE SCREEN, URINE NEGATIVE (NEGATIVE); METHAMPHETAMINES SCREEN, URINE NEGATIVE (NEGATIVE); OXYCODONE SCREEN,URINE NEGATIVE (NEGATIVE); PROPOXYPHENE SCREEN,URINE NEGATIVE (NEGATIVE); THC SCREEN,URINE 50 NG/ML NEGATIVE (NEGATIVE)
== END 2024-12-03 17:11 | disposition other institution (70) ==
LOC: JP.ED 15:05
DX: F10.120 Alcohol abuse with intoxication, uncomplicated (principal); F17.210 Nicotine dependence, cigarettes, uncomplicated; Z91.048 Other nonmedicinal substance allergy status; Z88.8 Allergy status to other drugs, medicaments and biological substances; Z79.899 Other long term (current) drug therapy; Y90.9 Presence of alcohol in blood, level not specified
CPT/HCPCS: 36415; 80305-QW; 80307; 99284